=== PATIENT | male | born 1965 | race Caucasian/White ===

== ENCOUNTER 2021-11-20 18:02 | Inpatient (IN) | payer OTHER, SELFPAY ==
[2021-11-20 18:41] LABS: #Eosinphils 0.4 thou/uL (0.0-0.7); #Lymphocytes 1.2 thou/uL (1.20-3.40); #Monocytes 0.5 thou/uL (0.11-0.59); #Neutrophils 6.8 thou/uL (1.40-6.50); %Basophils 0.5 % (0.0-1.0); %Eosinophils 4.7 % (0.0-10.0); %Lymphocytes 13.5 % (21.0-51.0); %Neutrophils 75.3 % (42.0-75.0); Hemoglobin 14.2 g/dL (14.0-18.0); Mean Corpuscular HGB CONC 33.1 g/dL (32.0-36.0); Mean Corpuscular Hemoglobin 31.3 pg (27.0-31.0); Mean Corpuscular Volume 94.6 fL (78.0-98.0); Mean Platelet Volume 8.4 fL (7.4-10.4); Platelet Count 178 thou/uL (130-400); RBC Distribution Width 14.5 % (11.5-14.5); Red Blood Cell (RBC) Count 4.54 mill/uL (4.70-6.10)
[2021-11-20] MEDS ORDERED: Nitroglycerin 2% Ointment 1 INCH/1 GM Packet ONE (18:44)
[2021-11-20] MEDS ORDERED: Enoxaparin Sodium 100 MG/ML SYRINGE ONE (18:44)
[2021-11-20 19:05] LABS: CK (CPK) 61 U/L (30-200); Magnesium 2.1 mg/dL (1.6-2.6)
[2021-11-20 19:23] LABS: CKMB 2.6 ng/mL (0-6.6)
[2021-11-20 19:34] LABS: ALT (SGPT) 14 U/L (8-55); AST (SGOT) 22 U/L (5-34); Albumin 4.7 g/dL (3.5-5.0); Alkaline Phosphatase 81 U/L (40-110); Anion Gap 16 mmol/L (10-20); BUN (Urea Nitrogen) 13 mg/dL (8.4-25.7); Bilirubin, Total 1.8 mg/dL (0.2-1.2); Calc. Creatinine Clearance 0 mL/min (70-130); Calcium 9.5 mg/dL (7.8-10.44); Carbon Dioxide 20 mmol/L (22-29); Chloride 107 mmol/L (98-107); Glucose 106 mg/dL (70-105); Potassium 3.6 mmol/L (3.5-5.1); Protein, Total 7.7 g/dL (6.0-8.3); Sodium 139 mmol/L (136-145)
[2021-11-20] MEDS ORDERED: hydrALAZINE 20 MG/ML VIAL ONE (21:18)
[2021-11-20] MEDS ORDERED: hydrALAZINE 20 MG/ML VIAL SLOW IVP PRN ×2 (21:41→22:26)
[2021-11-20] MEDS ORDERED: Acetaminophen 325 MG TAB PO PRN (22:34)
[2021-11-20] MEDS ORDERED: Ondansetron PF 4 MG/2 ML Vial IVP PRN (22:34)
[2021-11-20] MEDS ORDERED: Ondansetron ODT 4 MG TAB PO PRN (22:34)
[2021-11-20] MEDS ORDERED: Acetaminophen 650 MG Suppository PR PRN (22:34)
[2021-11-20] MEDS ORDERED: Nitroglycerin 2% Ointment 1 INCH/1 GM Packet TOP SCH (22:45)
[2021-11-20] MEDS ORDERED: Labetalol HCl 100 MG/20 ML VIAL SLOW IVP PRN (22:59)
[2021-11-20] MEDS ORDERED: Electrolyte Replacement Protocol 1 EACH FS SCH (23:00)
[2021-11-20] MEDS ORDERED: Furosemide 40 MG/4 ML VIAL SLOW IVP SCH (23:00)
[2021-11-20] MEDS: Labetalol HCl 100 MG/20 ML VIAL SLOW IVP PRN (23:21)
[2021-11-20 23:49] LABS: Troponin I 0.065 ng/mL (< 0.028)
[2021-11-21 00:08] VITALS: BMI 34.2
[2021-11-21] MEDS ORDERED: hydrALAZINE 20 MG/ML VIAL SLOW IVP PRN (00:50)
[2021-11-21] MEDS ORDERED: Amlodipine 10 MG TAB PO SCH (01:00)
[2021-11-21 02:50] LABS: #Eosinphils 0.4 thou/uL (0.0-0.7); #Lymphocytes 1.1 thou/uL (1.20-3.40); #Monocytes 0.8 thou/uL (0.11-0.59); #Neutrophils 8.3 thou/uL (1.40-6.50); %Basophils 0.3 % (0.0-1.0); %Eosinophils 3.7 % (0.0-10.0); %Neutrophils 78.1 % (42.0-75.0); Hemoglobin 14.5 g/dL (14.0-18.0); Mean Corpuscular HGB CONC 34.8 g/dL (32.0-36.0); Mean Corpuscular Hemoglobin 32.7 pg (27.0-31.0); Mean Platelet Volume 8.1 fL (7.4-10.4); Platelet Count 197 thou/uL (130-400); RBC Distribution Width 14.3 % (11.5-14.5); Red Blood Cell (RBC) Count 4.44 mill/uL (4.70-6.10); White Blood Cell (WBC) Count 10.6 thou/uL (4.8-10.8)
[2021-11-21 03:08] LABS: Anion Gap 16 mmol/L (10-20); BUN (Urea Nitrogen) 12 mg/dL (8.4-25.7); Calc. Creatinine Clearance 111 mL/min (70-130); Calcium 9.6 mg/dL (7.8-10.44); Carbon Dioxide 20 mmol/L (22-29); Chloride 106 mmol/L (98-107); Glucose 119 mg/dL (70-105); Magnesium 2.1 mg/dL (1.6-2.6); Potassium 3.3 mmol/L (3.5-5.1); Sodium 139 mmol/L (136-145)
[2021-11-21 03:13] LABS: Troponin I 0.066 ng/mL (< 0.028)
[2021-11-21] MEDS ORDERED: Cefepime 2 GM in Sodium Chloride 0.9% 100 ML IVPB SCH (05:00)
[2021-11-21] MEDS ORDERED: Hydrochlorothiazide 25 MG TAB PO SCH (05:30)
[2021-11-21] MEDS: Labetalol HCl 100 MG/20 ML VIAL SLOW IVP PRN ×2 (05:44→18:48)
[2021-11-21] MEDS: Nitroglycerin 2% Ointment 1 INCH/1 GM Packet TOP SCH ×2 (05:45→18:36)
[2021-11-21] MEDS: Potassium Chloride 20 MEQ in Premix Bag 1 BAG IVPB SCH ×2 (05:46→09:07)
[2021-11-21] MEDS ORDERED: VANCOMYCIN 1.25 GM/250 ML BAG 1.25 GM in Premix Bag 1 BAG IVPB SCH (06:00)
[2021-11-21] MEDS ORDERED: Nitroglycerin 2% Ointment 1 INCH/1 GM Packet TOP SCH (06:00)
[2021-11-21] MEDS: Amlodipine 10 MG TAB PO SCH (09:07)
[2021-11-21] MEDS: Furosemide 40 MG/4 ML VIAL SLOW IVP SCH (09:08)
[2021-11-21] MEDS: Aspirin Chewable 81 MG TAB PO SCH (09:08)
[2021-11-21] MEDS: Enoxaparin Sodium 100 MG/ML SYRINGE SC SCH ×2 (09:08→21:10)
[2021-11-21 11:56] LABS: SARS-CoV-2 PCR by NAA Not Detected (NotDetected)
[2021-11-22 04:34] LABS: #Basophils 0.1 thou/uL (0.0-0.2); #Eosinphils 0.3 thou/uL (0.0-0.7); #Lymphocytes 1.1 thou/uL (1.20-3.40); #Monocytes 1.1 thou/uL (0.11-0.59); #Neutrophils 7.2 thou/uL (1.40-6.50); %Basophils 0.6 % (0.0-1.0); %Eosinophils 3.3 % (0.0-10.0); %Lymphocytes 11.4 % (21.0-51.0); %Monocytes 11.2 % (0.0-10.0); %Neutrophils 73.5 % (42.0-75.0); Hemoglobin 13.7 g/dL (14.0-18.0); Mean Corpuscular HGB CONC 33.7 g/dL (32.0-36.0); Mean Corpuscular Hemoglobin 32.2 pg (27.0-31.0); Mean Corpuscular Volume 95.7 fL (78.0-98.0); Mean Platelet Volume 8.2 fL (7.4-10.4); Platelet Count 173 thou/uL (130-400); RBC Distribution Width 14.4 % (11.5-14.5); Red Blood Cell (RBC) Count 4.26 mill/uL (4.70-6.10); White Blood Cell (WBC) Count 9.8 thou/uL (4.8-10.8)
[2021-11-22 04:59] LABS: Anion Gap 15 mmol/L (10-20); BUN (Urea Nitrogen) 16 mg/dL (8.4-25.7); Calc. Creatinine Clearance 92 mL/min (70-130); Calcium 9.4 mg/dL (7.8-10.44); Carbon Dioxide 26 mmol/L (22-29); Chloride 103 mmol/L (98-107); Glucose 98 mg/dL (70-105); Potassium 3.2 mmol/L (3.5-5.1); Sodium 141 mmol/L (136-145)
[2021-11-22] MEDS: Nitroglycerin 2% Ointment 1 INCH/1 GM Packet TOP SCH ×2 (05:29→18:18)
[2021-11-22] MEDS ORDERED: Potassium Chloride 20 MEQ TAB PO SCH (06:30)
[2021-11-22] MEDS: Carvedilol 6.25 MG TAB PO SCH ×2 (08:45→16:27)
[2021-11-22] MEDS: Amlodipine 10 MG TAB PO SCH (08:50)
[2021-11-22 09:37] LABS: Bilirubin Negative (Negative); Blood, Urine 2+ (Negative); Clarity Turbid (Clear); Glucose, Urine (Dipstick) Normal (Negative); Ketone, Urine Negative (Negative); Leukocyte 250 Leu/uL (Negative); Nitrite Negative (Negative); Protein, Urine (Dipstick) 50 mg/dL (Neg-Trace); Specific Gravity, Urine 1.028 (1.002-1.036); Squamous Epithelial 0-3 HPF (0-3); pH, Urine 5.5 (5.0-9.0)
[2021-11-22 09:58] LABS: Bacteria/HPF 1+ HPF (None Seen)
[2021-11-22 09:59] LABS: WBC/HPF 21-50 HPF (0-3)
[2021-11-22] MEDS: Enoxaparin Sodium 100 MG/ML SYRINGE SC SCH ×2 (13:55→20:18)
[2021-11-22] MEDS ORDERED: Regadenoson 0.4 MG/5 ML SYRINGE ONE (13:55)
[2021-11-22] MEDS: Aspirin Chewable 81 MG TAB PO SCH (16:26)
[2021-11-22] MEDS: Tamsulosin HCl 0.4 MG CAP PO SCH (16:26)
[2021-11-22] MEDS: Furosemide 40 MG/4 ML VIAL SLOW IVP SCH (16:27)
[2021-11-22] MEDS: Isosorbide Dinitrate 20 MG TAB PO SCH (20:16)
[2021-11-23 04:28] LABS: #Eosinphils 0.5 thou/uL (0.0-0.7); #Lymphocytes 1.3 thou/uL (1.20-3.40); #Neutrophils 5.1 thou/uL (1.40-6.50); %Basophils 0.6 % (0.0-1.0); %Eosinophils 5.9 % (0.0-10.0); %Lymphocytes 16.7 % (21.0-51.0); %Monocytes 12.2 % (0.0-10.0); %Neutrophils 64.6 % (42.0-75.0); Hemoglobin 14.1 g/dL (14.0-18.0); Mean Corpuscular HGB CONC 33.5 g/dL (32.0-36.0); Mean Corpuscular Hemoglobin 32.1 pg (27.0-31.0); Mean Corpuscular Volume 95.8 fL (78.0-98.0); Mean Platelet Volume 8.2 fL (7.4-10.4); Platelet Count 170 thou/uL (130-400); RBC Distribution Width 14.2 % (11.5-14.5); Red Blood Cell (RBC) Count 4.38 mill/uL (4.70-6.10); White Blood Cell (WBC) Count 7.8 thou/uL (4.8-10.8)
[2021-11-23 04:45] LABS: Anion Gap 14 mmol/L (10-20); BUN (Urea Nitrogen) 18 mg/dL (8.4-25.7); Calc. Creatinine Clearance 108 mL/min (70-130); Calcium 9.4 mg/dL (7.8-10.44); Carbon Dioxide 26 mmol/L (22-29); Chloride 104 mmol/L (98-107); Glucose 100 mg/dL (70-105); Potassium 3.4 mmol/L (3.5-5.1); Sodium 141 mmol/L (136-145)
[2021-11-23] MEDS: Nitroglycerin 2% Ointment 1 INCH/1 GM Packet TOP SCH ×2 (05:51→19:40)
[2021-11-23] MEDS ORDERED: Potassium Chloride 20 MEQ TAB PO SCH (06:15)
[2021-11-23] MEDS: Aspirin Chewable 81 MG TAB PO SCH (09:10)
[2021-11-23] MEDS: Furosemide 40 MG/4 ML VIAL SLOW IVP SCH (09:10)
[2021-11-23] MEDS: Amlodipine 10 MG TAB PO SCH (09:11)
[2021-11-23] MEDS: Tamsulosin HCl 0.4 MG CAP PO SCH (09:11)
[2021-11-23] MEDS: Carvedilol 6.25 MG TAB PO SCH ×2 (09:11→16:10)
[2021-11-23] MEDS: Isosorbide Dinitrate 20 MG TAB PO SCH ×2 (09:13→20:51)
[2021-11-23] MEDS: Enoxaparin Sodium 100 MG/ML SYRINGE SC SCH ×2 (09:32→20:51)
[2021-11-23] MEDS ORDERED: Carvedilol 6.25 MG TAB PO SCH (09:45)
[2021-11-23] MEDS ORDERED: Communication Order-Pharmacy FS SCH (10:15)
[2021-11-23 10:40] LABS: Potassium 3.9 mmol/L (3.5-5.1)
[2021-11-24 04:25] LABS: #Eosinphils 0.5 thou/uL (0.0-0.7); #Lymphocytes 1.5 thou/uL (1.20-3.40); #Monocytes 0.8 thou/uL (0.11-0.59); #Neutrophils 4.7 thou/uL (1.40-6.50); %Basophils 0.1 % (0.0-1.0); %Eosinophils 6.8 % (0.0-10.0); %Lymphocytes 19.5 % (21.0-51.0); %Monocytes 10.8 % (0.0-10.0); %Neutrophils 62.9 % (42.0-75.0); Hemoglobin 14.1 g/dL (14.0-18.0); Mean Corpuscular HGB CONC 33.1 g/dL (32.0-36.0); Mean Corpuscular Hemoglobin 31.7 pg (27.0-31.0); Mean Corpuscular Volume 95.8 fL (78.0-98.0); Mean Platelet Volume 8.3 fL (7.4-10.4); Platelet Count 183 thou/uL (130-400); Red Blood Cell (RBC) Count 4.44 mill/uL (4.70-6.10); White Blood Cell (WBC) Count 7.5 thou/uL (4.8-10.8)
[2021-11-24] MEDS: Tamsulosin HCl 0.4 MG CAP PO SCH (05:00)
[2021-11-24] MEDS: Amlodipine 10 MG TAB PO SCH (05:00)
[2021-11-24] MEDS: Aspirin Chewable 81 MG TAB PO SCH (05:00)
[2021-11-24] MEDS: Carvedilol 6.25 MG TAB PO SCH ×2 (05:01→17:30)
[2021-11-24] MEDS: Isosorbide Dinitrate 20 MG TAB PO SCH ×2 (05:01→20:42)
[2021-11-24] MEDS: Nitroglycerin 2% Ointment 1 INCH/1 GM Packet TOP SCH ×2 (05:02→17:30)
[2021-11-24 05:17] LABS: Anion Gap 13 mmol/L (10-20); BUN (Urea Nitrogen) 22 mg/dL (8.4-25.7); Calc. Creatinine Clearance 98 mL/min (70-130); Calcium 9.5 mg/dL (7.8-10.44); Carbon Dioxide 25 mmol/L (22-29); Chloride 104 mmol/L (98-107); Glucose 103 mg/dL (70-105); Potassium 3.3 mmol/L (3.5-5.1); Sodium 139 mmol/L (136-145)
[2021-11-24] MEDS ORDERED: Potassium Chloride 20 MEQ TAB PO SCH ×2 (06:15→21:00)
[2021-11-24] MEDS ORDERED: Lidocaine 1% (PF) 30 ML VIAL ONE (07:15)
[2021-11-24] MEDS ORDERED: Nitroglycerin 100MG/250ML BOT 250 ML ONE (08:18)
[2021-11-24] MEDS ORDERED: Verapamil 5 MG/2 ML VIAL ONE (08:19)
[2021-11-24] MEDS ORDERED: Heparin 10,000 UNITS/ 10 ML VIAL ONE ×2 (08:19→09:09)
[2021-11-24] MEDS ORDERED: Midazolam HCl 2 mg/2 ml Vial ONE (08:24)
[2021-11-24] MEDS ORDERED: Iopamidol 370 76% 50 ML VIAL FS ONE (09:05)
[2021-11-24] MEDS ORDERED: Iopamidol 370 76% 100 ML VIAL ONE (09:05)
[2021-11-24] MEDS ORDERED: TICAGRELOR 90 MG TABLET ONE (09:47)
[2021-11-24] MEDS: Furosemide 40 MG/4 ML VIAL SLOW IVP SCH (11:48)
[2021-11-24 19:48] LABS: Magnesium 2.5 mg/dL (1.6-2.6); Potassium 3.6 mmol/L (3.5-5.1)
[2021-11-24] MEDS: TICAGRELOR 90 MG TABLET PO SCH (20:42)
[2021-11-24] MEDS ORDERED: Atorvastatin Calcium 40 MG TAB PO SCH (21:00)
[2021-11-25 04:12] LABS: #Eosinphils 0.6 thou/uL (0.0-0.7); #Lymphocytes 1.1 thou/uL (1.20-3.40); #Monocytes 0.8 thou/uL (0.11-0.59); #Neutrophils 5.9 thou/uL (1.40-6.50); %Basophils 0.3 % (0.0-1.0); %Eosinophils 6.6 % (0.0-10.0); %Lymphocytes 13.5 % (21.0-51.0); %Neutrophils 69.6 % (42.0-75.0); Hemoglobin 15.4 g/dL (14.0-18.0); Mean Corpuscular HGB CONC 34.2 g/dL (32.0-36.0); Mean Corpuscular Hemoglobin 32.5 pg (27.0-31.0); Mean Platelet Volume 8.3 fL (7.4-10.4); Platelet Count 206 thou/uL (130-400); RBC Distribution Width 13.9 % (11.5-14.5); Red Blood Cell (RBC) Count 4.73 mill/uL (4.70-6.10); White Blood Cell (WBC) Count 8.4 thou/uL (4.8-10.8)
[2021-11-25 04:33] LABS: ALT (SGPT) 32 U/L (8-55); AST (SGOT) 39 U/L (5-34); Albumin 4.6 g/dL (3.5-5.0); Alkaline Phosphatase 75 U/L (40-110); Anion Gap 15 mmol/L (10-20); BUN (Urea Nitrogen) 21 mg/dL (8.4-25.7); Bilirubin, Total 1.5 mg/dL (0.2-1.2); Calc. Creatinine Clearance 89 mL/min (70-130); Calcium 10.1 mg/dL (7.8-10.44); Carbon Dioxide 25 mmol/L (22-29); Chloride 104 mmol/L (98-107); Globulin 3.2 g/dL (2.4-3.5); Glucose 110 mg/dL (70-105); Potassium 4.3 mmol/L (3.5-5.1); Protein, Total 7.8 g/dL (6.0-8.3); Sodium 140 mmol/L (136-145)
[2021-11-25] MEDS: Nitroglycerin 2% Ointment 1 INCH/1 GM Packet TOP SCH (05:54)
[2021-11-25 07:00] LABS: Magnesium 2.4 mg/dL (1.6-2.6)
[2021-11-25] MEDS ORDERED: Lisinopril 2.5 MG TAB PO SCH (09:00)
[2021-11-25] MEDS: Amlodipine 10 MG TAB PO SCH (09:04)
[2021-11-25] MEDS: Furosemide 40 MG/4 ML VIAL SLOW IVP SCH (09:04)
[2021-11-25] MEDS: Isosorbide Dinitrate 20 MG TAB PO SCH (09:04)
[2021-11-25] MEDS: Carvedilol 6.25 MG TAB PO SCH (09:04)
[2021-11-25] MEDS: Aspirin Chewable 81 MG TAB PO SCH (09:04)
[2021-11-25] MEDS: Tamsulosin HCl 0.4 MG CAP PO SCH (09:05)
[2021-11-25] MEDS: TICAGRELOR 90 MG TABLET PO SCH (09:05)
[2021-11-25 11:36] VITALS: BP 137/76; TEMP 98
[2021-11-25] MEDS ORDERED: Apixaban 5 MG TAB PO SCH (21:00)
[2021-11-26] MEDS ORDERED: Lisinopril 10 MG TAB PO SCH (09:00)
== END 2021-11-25 15:20 | disposition home or self-care (01) | DRG 248 ==
LOC: ERS 18:02 → 2NO 21:44
PROVIDERS: ADMIT Student in an Organized Health Care Education/Training Program; ATTEND Internal Medicine
PROC: 02703DZ Dilation of Coronary Artery, One Artery with Intraluminal Device, Percutaneous Approach (ICD-10-PCS; principal; 2021-11-24)
PROC: 4A023N7 Measurement of Cardiac Sampling and Pressure, Left Heart, Percutaneous Approach (ICD-10-PCS; 2021-11-24)
PROC: B2111ZZ Fluoroscopy of Multiple Coronary Arteries using Low Osmolar Contrast (ICD-10-PCS; 2021-11-24)
PROC: B2151ZZ Fluoroscopy of Left Heart using Low Osmolar Contrast (ICD-10-PCS; 2021-11-24)
DX: I48.20 Chronic atrial fibrillation, unspecified (principal); I21.4 Non-ST elevation (NSTEMI) myocardial infarction; I47.2 Ventricular tachycardia; I16.0 Hypertensive urgency; Z20.822 Contact with and (suspected) exposure to COVID-19; I25.10 Atherosclerotic heart disease of native coronary artery without angina pectoris; R33.9 Retention of urine, unspecified; F17.290 Nicotine dependence, other tobacco product, uncomplicated; R79.89 Other specified abnormal findings of blood chemistry; I08.3 Combined rheumatic disorders of mitral, aortic and tricuspid valves; I50.9 Heart failure, unspecified; I11.0 Hypertensive heart disease with heart failure; I49.3 Ventricular premature depolarization; Z82.49 Family history of ischemic heart disease and other diseases of the circulatory system; Z83.3 Family history of diabetes mellitus
CPT/HCPCS: 36415; 71045; 78452; 80048; 80053; 81015; 82550; 82553; 83735; 83880; 84443; 84484; 85025; 85347; 85379; 87086; 92928; 93005; 93010; 93017; 93306; 93458; 93798; 93970; 94640; 94760; 96372; 96374; 97139; A9500; C1876; J0360; J1644; J1650; J1940; J2001; J2250; J2785; J3480; J7620; Q9967; U0003; U0005

== ENCOUNTER 2023-11-22 20:01 | Inpatient (IN) | payer SELFPAY ==
[2023-11-22 21:44] LABS: Anion Gap 16 mmol/L (10-20); Globulin 3.8 g/dL (2.4-3.5)
[2023-11-22 21:45] LABS: #Basophils 0.03 10x3/uL (0.0-0.2); %Basophils 0.3 % (0.0-1.0); %Eosinophils 4.2 % (0.0-10.0); %Lymphocytes 14.6 % (21.0-51.0); %Monocytes 9.2 % (0.0-10.0); %Neutrophils 71.2 % (42.0-75.0); Hematocrit 26.2 % (42.0-52.0); Hemoglobin 7.9 g/dL (14.0-18.0); Mean Corpuscular HGB CONC 30.2 g/dL (32.0-36.0); Mean Corpuscular Hemoglobin 22.4 pg (27.0-31.0); Mean Corpuscular Volume 74.4 fL (78.0-98.0); Mean Platelet Volume 10.7 fL (7.4-10.4); Platelet Count 271 10x3/uL (130-400); RBC Distribution Width 16.4 % (11.5-14.5); Red Blood Cell (RBC) Count 3.52 mill/uL (4.70-6.10)
[2023-11-22 21:51] LABS: ALT (SGPT) 10 U/L (8-55); AST (SGOT) 16 U/L (5-34); Albumin 3.7 g/dL (3.5-5.0); Alkaline Phosphatase 99 U/L (40-110); BUN (Urea Nitrogen) 10 mg/dL (8.4-25.7); Bilirubin, Total 1.1 mg/dL (0.2-1.2); Calc. Creatinine Clearance 0 mL/min (70-130); Carbon Dioxide 29 mmol/L (22-29); Chloride 96 mmol/L (98-107); Estimated GFR 78; Glucose 97 mg/dL (70-105); Lipase 66 U/L (8-78); Protein, Total 7.5 g/dL (6.0-8.3); Sodium 139 mmol/L (136-145)
[2023-11-22 22:21] LABS: Anisocytosis SLIGHT = 6-15 cells HPF (0-5); Hypochromia SLIGHT = 6-15 cells HPF (0-5); Microcytosis SLIGHT = 6-15 cells HPF (0-5); Ovalocytes MODERATE= 6-15 cells HPF (0-1); Platelet Adequacy Comment Platelets Normal; Polychromasia MODERATE = 3-4 cells HPF (0-2)
[2023-11-22] MEDS ORDERED: NS 0.9% w/ 20 MEQ KCL 1,000 ML ONE (22:28)
[2023-11-22] MEDS ORDERED: Potassium Chloride 20 MEQ TAB ONE (22:28)
[2023-11-22] MEDS ORDERED: Acetaminophen 650 MG Suppository PR PRN (23:56)
[2023-11-22] MEDS ORDERED: Ondansetron ODT 4 MG TAB PO PRN (23:56)
[2023-11-22] MEDS ORDERED: Ondansetron PF 4 MG/2 ML Vial IVP PRN (23:56)
[2023-11-22] MEDS ORDERED: Acetaminophen 325 MG TAB PO PRN (23:56)
[2023-11-22] MEDS ORDERED: Electrolyte Replacement Protocol FS SCH (23:58)
[2023-11-23 01:31] VITALS: BMI 31252.3
[2023-11-23 02:10] LABS: #Basophils 0.03 10x3/uL (0.0-0.2); %Basophils 0.4 % (0.0-1.0); %Eosinophils 4.9 % (0.0-10.0); %Lymphocytes 17.7 % (21.0-51.0); %Monocytes 8.7 % (0.0-10.0); Hematocrit 23.9 % (42.0-52.0); Hemoglobin 7.1 g/dL (14.0-18.0); Mean Corpuscular HGB CONC 29.7 g/dL (32.0-36.0); Mean Corpuscular Hemoglobin 21.9 pg (27.0-31.0); Mean Corpuscular Volume 73.8 fL (78.0-98.0); Mean Platelet Volume 11.1 fL (7.4-10.4); Platelet Count 238 10x3/uL (130-400); RBC Distribution Width 16.4 % (11.5-14.5); Red Blood Cell (RBC) Count 3.24 mill/uL (4.70-6.10)
[2023-11-23 02:20] LABS: Troponin I 0.027 ng/mL (< 0.028)
[2023-11-23] MEDS: Pantoprazole 40 MG VIAL IVP SCH (02:21)
[2023-11-23 05:52] LABS: Anion Gap 19 mmol/L (10-20); Iron Binding Capacity, Total 351 mcg/dL (261-462)
[2023-11-23 06:01] LABS: BUN (Urea Nitrogen) 9 mg/dL (8.4-25.7); Calc. Creatinine Clearance 126 mL/min (70-130); Calcium 8.6 mg/dL (7.8-10.44); Carbon Dioxide 24 mmol/L (22-29); Chloride 99 mmol/L (98-107); Estimated GFR 87; Glucose 91 mg/dL (70-105); Iron 18 ug/dL (65-175); Potassium 1.9 mmol/L (3.5-5.1); Sodium 140 mmol/L (136-145)
[2023-11-23] MEDS: Potassium Chloride 20 MEQ in Premix 1 BAG IVPB SCH ×2 (06:31→11:05)
[2023-11-23 07:40] LABS: Magnesium 1.9 mg/dL (1.6-2.6)
[2023-11-23] MEDS: Magnesium 2 GM/50 ML(in water) 2 GM in Premix 1 BAG IVPB SCH (09:00)
[2023-11-23] MEDS: Potassium Chloride 40 MEQ in Premix 1 BAG IVPB SCH (09:00)
[2023-11-23] MEDS: Sodium Ferric Gluconate 250 MG in Sodium Chloride 0.9% 250 ML 250 ML IVPB SCH (09:03)
[2023-11-23 09:37] LABS: Potassium 2.2 mmol/L (3.5-5.1)
[2023-11-23] MEDS: Potassium Chloride 20 MEQ TAB PO SCH ×3 (11:05→21:35)
[2023-11-23 16:32] LABS: Hematocrit 22.8 % (42.0-52.0); Hemoglobin 6.7 g/dL (14.0-18.0); Mean Corpuscular HGB CONC 29.4 g/dL (32.0-36.0); Mean Corpuscular Hemoglobin 22.6 pg (27.0-31.0); Mean Corpuscular Volume 76.8 fL (78.0-98.0); Mean Platelet Volume 11.4 fL (7.4-10.4); Platelet Count 224 10x3/uL (130-400); RBC Distribution Width 16.5 % (11.5-14.5); Red Blood Cell (RBC) Count 2.97 mill/uL (4.70-6.10)
[2023-11-23 17:37] LABS: Potassium 2.6 mmol/L (3.5-5.1)
[2023-11-23] MEDS: GoLYTELY 4,000 ml Bottle PO SCH (18:13)
[2023-11-24 01:53] LABS: #Basophils Less than 0.03 10x3/uL (0.0-0.2); %Basophils 0.2 % (0.0-1.0); %Eosinophils 3.4 % (0.0-10.0); %Lymphocytes 9.5 % (21.0-51.0); %Monocytes 9.6 % (0.0-10.0); %Neutrophils 76.9 % (42.0-75.0); Hematocrit 24.5 % (42.0-52.0); Hemoglobin 7.4 g/dL (14.0-18.0); Mean Corpuscular HGB CONC 30.2 g/dL (32.0-36.0); Mean Corpuscular Hemoglobin 23.2 pg (27.0-31.0); Mean Corpuscular Volume 76.8 fL (78.0-98.0); Mean Platelet Volume 11.4 fL (7.4-10.4); Platelet Count 235 10x3/uL (130-400); RBC Distribution Width 17.1 % (11.5-14.5); Red Blood Cell (RBC) Count 3.19 mill/uL (4.70-6.10)
[2023-11-24 02:26] LABS: Anion Gap 13 mmol/L (10-20); BUN (Urea Nitrogen) 8 mg/dL (8.4-25.7); Calc. Creatinine Clearance 133 mL/min (70-130); Calcium 8.8 mg/dL (7.8-10.44); Carbon Dioxide 27 mmol/L (22-29); Chloride 102 mmol/L (98-107); Estimated GFR 93; Glucose 93 mg/dL (70-105); Potassium 2.4 mmol/L (3.5-5.1); Sodium 140 mmol/L (136-145)
[2023-11-24] MEDS: Potassium Chloride 40 MEQ in Premix 1 BAG IVPB SCH (02:39)
[2023-11-24 02:52] LABS: Magnesium 2.3 mg/dL (1.6-2.6)
[2023-11-24] MEDS ORDERED: Potassium Chloride 20 MEQ TAB PO SCH (08:00)
[2023-11-24] MEDS: Potassium Chloride 40 MEQ in Sodium Chloride 0.45% 1,000 ML IV SCH (09:10)
[2023-11-24] MEDS ORDERED: PROPOFOL 40 ML ONE (13:34)
[2023-11-24] MEDS ORDERED: Glycopyrrolate 0.2 MG/ML 5 ML SYRINGE ONE (13:38)
[2023-11-24] MEDS ORDERED: Morphine Sulfate 2 MG/ML SYRINGE SLOW IVP PRN (14:06)
[2023-11-24] MEDS ORDERED: Promethazine HCl 25 MG/ML VIAL IM PRN (14:06)
[2023-11-24] MEDS ORDERED: Ondansetron HCl/PF 4 MG/2 ML Vial IVP PRN (14:06)
[2023-11-24 15:54] LABS: Hematocrit 25.2 % (42.0-52.0); Hemoglobin 7.4 g/dL (14.0-18.0)
[2023-11-24 16:07] LABS: Potassium 2.9 mmol/L (3.5-5.1)
[2023-11-24] MEDS: Potassium Chloride 20 MEQ TAB PO SCH (16:13)
[2023-11-25 01:09] LABS: Potassium 3.2 mmol/L (3.5-5.1)
[2023-11-25 04:39] LABS: #Basophils Less than 0.03 10x3/uL (0.0-0.2); %Basophils 0.3 % (0.0-1.0); %Eosinophils 4.8 % (0.0-10.0); %Lymphocytes 9.8 % (21.0-51.0); %Monocytes 7.9 % (0.0-10.0); %Neutrophils 76.5 % (42.0-75.0); Hematocrit 24.5 % (42.0-52.0); Hemoglobin 7.3 g/dL (14.0-18.0); Mean Corpuscular HGB CONC 29.8 g/dL (32.0-36.0); Mean Corpuscular Hemoglobin 23.6 pg (27.0-31.0); Mean Corpuscular Volume 79.3 fL (78.0-98.0); Mean Platelet Volume 11.7 fL (7.4-10.4); Platelet Count 220 10x3/uL (130-400); RBC Distribution Width 17.5 % (11.5-14.5); Red Blood Cell (RBC) Count 3.09 mill/uL (4.70-6.10)
[2023-11-25 04:51] LABS: Globulin 2.9 g/dL (2.4-3.5)
[2023-11-25 04:55] LABS: ALT (SGPT) 10 U/L (8-55); AST (SGOT) 17 U/L (5-34); Alkaline Phosphatase 84 U/L (40-110); Anion Gap 12 mmol/L (10-20); BUN (Urea Nitrogen) 5 mg/dL (8.4-25.7); Calc. Creatinine Clearance 136 mL/min (70-130); Calcium 8.6 mg/dL (7.8-10.44); Carbon Dioxide 23 mmol/L (22-29); Chloride 110 mmol/L (98-107); Estimated GFR 95; Glucose 87 mg/dL (70-105); Potassium 3.1 mmol/L (3.5-5.1); Protein, Total 5.9 g/dL (6.0-8.3); Sodium 142 mmol/L (136-145)
[2023-11-25 05:19] LABS: Alpha-Fetoprotein,Tumor Marker Less than 2.0 ng/mL (0.89-8.78); Cancer Antigen - CA 125 27.3 U/mL (Less than 35)
[2023-11-25 14:06] LABS: Potassium 3.9 mmol/L (3.5-5.1)
[2023-11-26 05:26] LABS: #Basophils 0.03 10x3/uL (0.0-0.2); %Basophils 0.5 % (0.0-1.0); %Eosinophils 6.1 % (0.0-10.0); %Lymphocytes 12.8 % (21.0-51.0); %Monocytes 9.2 % (0.0-10.0); %Neutrophils 70.1 % (42.0-75.0); Hematocrit 23.9 % (42.0-52.0); Hemoglobin 6.9 g/dL (14.0-18.0); Mean Corpuscular HGB CONC 28.9 g/dL (32.0-36.0); Mean Corpuscular Hemoglobin 23.4 pg (27.0-31.0); Mean Platelet Volume 11.9 fL (7.4-10.4); Platelet Count 193 10x3/uL (130-400); RBC Distribution Width 18.2 % (11.5-14.5); Red Blood Cell (RBC) Count 2.95 mill/uL (4.70-6.10)
[2023-11-26 05:44] LABS: Globulin 2.8 g/dL (2.4-3.5)
[2023-11-26 05:48] LABS: ALT (SGPT) 10 U/L (8-55); AST (SGOT) 17 U/L (5-34); Albumin 2.9 g/dL (3.5-5.0); Alkaline Phosphatase 78 U/L (40-110); Anion Gap 11 mmol/L (10-20); BUN (Urea Nitrogen) 4 mg/dL (8.4-25.7); Calc. Creatinine Clearance 139 mL/min (70-130); Calcium 8.6 mg/dL (7.8-10.44); Carbon Dioxide 21 mmol/L (22-29); Chloride 113 mmol/L (98-107); Estimated GFR 98; Glucose 80 mg/dL (70-105); Potassium 4.1 mmol/L (3.5-5.1); Protein, Total 5.7 g/dL (6.0-8.3); Sodium 141 mmol/L (136-145)
[2023-11-26 06:02] LABS: Anisocytosis SLIGHT = 6-15 cells HPF (0-5); Hypochromia SLIGHT = 6-15 cells HPF (0-5); Microcytosis SLIGHT = 6-15 cells HPF (0-5); Platelet Adequacy Comment Platelets Normal; Polychromasia SLIGHT = 2-3 cells HPF (0-2)
[2023-11-26] MEDS ORDERED: Iopamidol-370 76% 500 ML MDV (1 ML CHARGE) ONE (11:09)
[2023-11-26] MEDS ORDERED: EPINEPHrine 1 MG/ML VIAL ONE (13:52)
[2023-11-26] MEDS ORDERED: Bupivacaine 0.25% HCL 30 ML VIAL ONE (13:52)
[2023-11-26] MEDS ORDERED: fentaNYL 50 mcg/mL 1 mL Vial ONE ×3 (14:19→15:19)
[2023-11-26] MEDS ORDERED: PROPOFOL 40 ML ONE (14:19)
[2023-11-26] MEDS ORDERED: Ondansetron PF 4 MG/2 ML Vial ONE (14:19)
[2023-11-26] MEDS ORDERED: Lidocaine 1% PF 5 ML VIAL ONE (14:19)
[2023-11-26] MEDS ORDERED: Dexamethasone 4 mg/ml Vial ONE (14:19)
[2023-11-26] MEDS ORDERED: Sodium Chloride 0.9% 100 ML ONE (14:20)
[2023-11-26] MEDS ORDERED: CEFAZOLIN 2 GM VIAL ONE (14:20)
[2023-11-26] MEDS ORDERED: Ketorolac Tromethamine 30 MG/ML VIAL IVP PRN (15:02)
[2023-11-26] MEDS ORDERED: Promethazine HCl 25 MG/ML VIAL IM PRN (15:02)
[2023-11-26] MEDS ORDERED: Ondansetron HCl/PF 4 MG/2 ML Vial IVP PRN (15:02)
[2023-11-26 17:30] LABS: Hemoglobin 8.2 g/dL (14.0-18.0)
[2023-11-27 04:31] LABS: #Basophils Less than 0.03 10x3/uL (0.0-0.2); #Eosinphils Less than 0.03 10x3/uL (0.0-0.7); %Basophils 0.3 % (0.0-1.0); %Eosinophils 0.3 % (0.0-10.0); %Lymphocytes 7.2 % (21.0-51.0); %Neutrophils 84.8 % (42.0-75.0); Hematocrit 27.8 % (42.0-52.0); Hemoglobin 8.1 g/dL (14.0-18.0); Mean Corpuscular HGB CONC 29.1 g/dL (32.0-36.0); Mean Corpuscular Hemoglobin 23.7 pg (27.0-31.0); Mean Corpuscular Volume 81.3 fL (78.0-98.0); Mean Platelet Volume 12.4 fL (7.4-10.4); Platelet Count 250 10x3/uL (130-400); RBC Distribution Width 19.7 % (11.5-14.5); Red Blood Cell (RBC) Count 3.42 mill/uL (4.70-6.10)
[2023-11-27 05:05] LABS: ALT (SGPT) 13 U/L (8-55); AST (SGOT) 19 U/L (5-34); Albumin 3.2 g/dL (3.5-5.0); Alkaline Phosphatase 86 U/L (40-110); Anion Gap 14 mmol/L (10-20); BUN (Urea Nitrogen) 5 mg/dL (8.4-25.7); Bilirubin, Total 0.9 mg/dL (0.2-1.2); Calc. Creatinine Clearance 122 mL/min (70-130); Calcium 9.2 mg/dL (7.8-10.44); Carbon Dioxide 18 mmol/L (22-29); Chloride 114 mmol/L (98-107); Estimated GFR 84; Globulin 3.3 g/dL (2.4-3.5); Glucose 106 mg/dL (70-105); Iron Binding Capacity, Total 323 mcg/dL (261-462); Potassium 5.1 mmol/L (3.5-5.1); Protein, Total 6.5 g/dL (6.0-8.3); Sodium 141 mmol/L (136-145)
[2023-11-27 05:09] LABS: Iron 99 ug/dL (65-175); Iron Binding Capacity, Total 321 mcg/dL (261-462)
[2023-11-27 08:04] VITALS: TEMP 97.7
[2023-11-27 11:02] VITALS: BP 108/71
== END 2023-11-27 12:05 | disposition home or self-care (01) | DRG 358 ==
LOC: ERS 20:01 → 2NO 11-23 00:28
PROVIDERS: ADMIT Student in an Organized Health Care Education/Training Program; ATTEND Internal Medicine
PROC: 02HV33Z Insertion of Infusion Device into Superior Vena Cava, Percutaneous Approach (ICD-10-PCS; principal; 2023-11-23)
PROC: 30233N1 Transfusion of Nonautologous Red Blood Cells into Peripheral Vein, Percutaneous Approach (ICD-10-PCS; 2023-11-23)
PROC: 0DBP8ZX Excision of Rectum, Via Natural or Artificial Opening Endoscopic, Diagnostic (ICD-10-PCS; 2023-11-24)
PROC: 0JH60WZ Insertion of Totally Implantable Vascular Access Device into Chest Subcutaneous Tissue and Fascia, Open Approach (ICD-10-PCS; 2023-11-26)
PROC: 02HV33Z Insertion of Infusion Device into Superior Vena Cava, Percutaneous Approach (ICD-10-PCS; 2023-11-26)
PROC: 3E043XZ Introduction of Vasopressor into Central Vein, Percutaneous Approach (ICD-10-PCS; 2023-11-26)
DX: C20 Malignant neoplasm of rectum (principal); E87.6 Hypokalemia; D50.0 Iron deficiency anemia secondary to blood loss (chronic); Z79.899 Other long term (current) drug therapy; Z79.01 Long term (current) use of anticoagulants; Z79.82 Long term (current) use of aspirin; I25.10 Atherosclerotic heart disease of native coronary artery without angina pectoris; K63.89 Other specified diseases of intestine
CPT/HCPCS: 36415; 36430; 71045; 71046; 71260; 74176; 80048; 80053; 82105; 82378; 82728; 83540; 83550; 83690; 83735; 84443; 84484; 85025; 86301; 86304; 86850; 86900; 86901; 88305; 93005; 96374; C1788; C9113; J0171; J0665; J1100; J1642; J2405; J2704; J2916; J3010; J3475; J3480; J3490; J7050; P9016; Q9967

== ENCOUNTER 2025-05-09 08:00 | Outpatient (CLI) | payer MEDICARE | END 2025-05-09 08:01 | disposition home or self-care (01) | LOC: PET 08:00 | PROVIDERS: ATTEND Internal Medicine | DX: C20 Malignant neoplasm of rectum (principal); D50.8 Other iron deficiency anemias; E66.9 Obesity, unspecified | CPT/HCPCS: 78815; A9552 ==